=== PATIENT | female | born 1990 | race African-American/Black ===

== ENCOUNTER 2016-11-03 07:51 | Emergency (ER) | payer BC ==
[~2016-11-03] VITALS: Ht 185.4 cm; Wt 113.4 kg
[~2016-11-03 07:51] MED LIST: IBUPROFEN 800800 MG PO; KEFLEX500 MG PO; NAPROSYN500 MG PO; PREDNISONE 20 M20 M1 PO; VALIUM5 MG PO
[2016-11-03] MEDS ORDERED: PREDNISONE 20 M20 MG PO (08:55)
[2016-11-03 09:15] VITALS: BP 101/57
== END 2016-11-03 09:20 | disposition home or self-care (01) ==
LOC: ER 07:51
DX: M79.672 Pain in left foot (principal); M79.671 Pain in right foot; F10.99 Alcohol use, unspecified with unspecified alcohol-induced disorder

== ENCOUNTER 2017-01-11 21:09 | Emergency (ER) | payer BC ==
[~2017-01-11] VITALS: Ht 185.4 cm; Wt 113.4 kg
[~2017-01-11 21:09] MED LIST changes: +PREDNISONE 20 M20 MG PO
[2017-01-11] MEDS ORDERED: MOBIC15 MG PO (21:23)
[2017-01-11 21:28] LABS: URINE BILIRUBIN NEGATIVE (Negative); URINE BLOOD NEGATIVE (Negative); URINE COLOR YELLOW; URINE GLUCOSE-RANDOM* NEGATIVE (Negative); URINE KETONES 1+ (Negative); URINE NITRITE NEGATIVE (Negative); URINE PROTEIN (DIPSTICK) NEGATIVE (Negative); URINE SPECIFIC GRAVITY 1.025 (1.003-1.035); URINE UROBILINOGEN 0.2 E.U./dl (0.2-1.0)
[2017-01-11 22:21] LABS: HEMATOCRIT 34.4 % (37.0-47.0); MCH 24.9 pg (26.0-34.0); MCHC 31.9 g/dL (28.0-37.0); MCV 77.9 fL (80.0-100.0); PLATELET COUNT 200 thou/uL (150-400); RBC 4.41 mil/uL (4.20-5.00); RDW 17.3 % (10.5-14.5); WBC 11.3 thou/uL (4.0-11.0)
[2017-01-11 22:22] LABS: MANUAL DIFF YES
[2017-01-11 22:27] LABS: CALCIUM 8.6 mg/dL (8.5-10.1); CREATININE 0.9 mg/dL (0.6-1.3); POTASSIUM 3.5 mmol/L (3.5-5.1)
[2017-01-11 22:32] LABS: DIRECT BILIRUBIN 0.1 mg/dL (<0.1-0.3); TOTAL BILIRUBIN 0.4 mg/dL (<0.1-1.0)
[2017-01-11 22:53] LABS: ABSOLUTE NEUTROPHILS 10.3 thou/uL (1.4-8.2); ANISOCYTOSIS 1+; TOTAL CELL COUNT 100
[2017-01-11] MEDS ORDERED: ZOFRAN ODT4 MG PO (23:05)
[2017-01-11] MEDS ORDERED: PRILOSEC OTC20 MG PO (23:05)
[2017-01-11 23:19] VITALS: BP 136/88
== END 2017-01-11 23:21 | disposition home or self-care (01) ==
LOC: ER 21:09
PROVIDERS: Emergency Medicine; Physician Assistant
DX: K29.70 Gastritis, unspecified, without bleeding (principal)

== ENCOUNTER 2020-04-11 04:19 | Emergency (ER) | payer OTHER ==
[~2020-04-11] VITALS: Ht 190.5 cm; Wt 116.1 kg
[~2020-04-11 04:19] MED LIST changes: +MOBIC15 MG PO; +PRILOSEC OTC20 MG PO; +ZOFRAN ODT4 MG PO
[2020-04-11 05:11] LABS: ABSOLUTE NEUTROPHILS 5.9 thou/uL (1.4-8.2); BASOPHILS 0.7 % (0.0-2.0); EOSINOPHILS 0.7 % (0.0-3.0); HEMATOCRIT 35.7 % (37.0-47.0); HEMOGLOBIN 11.2 gm/dL (12.0-15.0); LYMPHOCYTES 28.5 % (24.0-44.0); MCH 24.5 pg (26.0-34.0); MCHC 31.3 g/dL (28.0-37.0); MCV 78.2 fL (80.0-100.0); MONOCYTES 7.2 % (1.0-8.0); PLATELET COUNT 261 thou/uL (150-400); POLYS 62.9 % (36.0-66.0); RBC 4.56 mil/uL (4.20-5.00); RDW 16.8 % (10.5-14.5); WBC 9.4 thou/uL (4.0-11.0)
[2020-04-11 05:14] LABS: CALCIUM 8.4 mg/dL (8.5-10.1); CREATININE 0.9 mg/dL (0.6-1.0); POTASSIUM 3.8 mmol/L (3.5-5.1)
[2020-04-11 05:20] LABS: ALBUMIN 2.8 g/dL (3.4-5.0); TOTAL BILIRUBIN 0.2 mg/dL (0.2-1.0); TOTAL PROTEIN 7.2 g/dL (6.4-8.2)
[2020-04-11 05:32] LABS: URINE BILIRUBIN NEGATIVE (Negative); URINE BLOOD NEGATIVE (Negative); URINE CLARITY CLEAR; URINE COLOR YELLOW; URINE GLUCOSE-RANDOM* NEGATIVE (Negative); URINE KETONES NEGATIVE (Negative); URINE LEUKOCYTES-REFLEX NEGATIVE (Negative); URINE NITRITE-REFLEX NEGATIVE (Negative); URINE PROTEIN (DIPSTICK) TRACE (Negative); URINE SPECIFIC GRAVITY >= 1.030 (1.005-1.035); URINE UROBILINOGEN 0.2 E.U./dl (0.2-1.0)
[2020-04-11 06:47] VITALS: BP 104/72
== END 2020-04-11 06:48 | disposition home or self-care (01) ==
LOC: ER 04:19
PROVIDERS: Emergency Medicine
DX: K52.9 Noninfective gastroenteritis and colitis, unspecified (principal); Z79.899 Other long term (current) drug therapy

== ENCOUNTER 2021-11-24 23:11 | Emergency (ER) | payer OTHER ==
[~2021-11-24] VITALS: Ht 185.4 cm; Wt 131.5 kg
[2021-11-25 01:54] VITALS: BP 133/70
== END 2021-11-25 01:50 | disposition home or self-care (01) ==
LOC: ER 23:11
DX: R51.9 Headache, unspecified (principal); Z20.822 Contact with and (suspected) exposure to COVID-19